=== PATIENT | female | born 1975 | race African-American/Black ===

== ENCOUNTER 2023-11-30 07:37 | Emergency (ER) | payer SELFPAY ==
[2023-11-30 07:41] VITALS: BP 127/75
--- NOTE | 2023-11-30 08:40 | ED.GENMED ---
History of Present Illness
General
Chief Complaint: Numbness
Source: patient
Exam Limitations: none
Time Seen by Provider: 11/30/23 08:20
Nursing documentation reviewed up to this point in time: agreed with
Travel History
Have you had any contact with someone who has COVID-19?: No
Do you have any symptoms of coronavirus? Fever > 100 degrees, chills, cough, shortness of breath, sore throat, loss of taste or smell, muscle aches, or headache?: No
History of Present Illness
History of Present Illness:
48-year-old female presents emergency department complaining of numbness and tingling in her left hand for months. She takes aspirin it helps. This has been ongoing for several months. She has a history of carpal tunnel surgery.
Past History
Past History
ED Past Medical History: Seizures
ED Past Surgical History: , Orthopedic (Left hand carpal tunnel) and Other (Hernia repair)
Social History
Tobacco: Non-smoker
Alcohol: None
Drug: None
Living: with family
Review of Systems
Review of Systems
Allergies reviewed?: Yes
All Other Systems: Not applicable
Constitutional: Reports no symptoms
EENT: Reports no symptoms
Respiratory: Reports no symptoms
Cardiac: Reports no symptoms
ABD/GI: Reports no symptoms
: Reports no symptoms
Musculoskeletal: Reports muscle pain
Skin: Reports no symptoms
Neurological: Reports numbness
Endocrine: Reports no symptoms
Hematologic/Lymphatic: Reports no symptoms
Psychiatric: Reports no symptoms
Phy Exam
Physical Exam
Physical Exam:
Physical Exam
General: no apparent distress, not acutely ill
Neck: supple. no meningeal signs.
Heart: equal radial pulses.
HEENT: Pupils equal round reactive to light, EOMI
Lungs: no acute respiratory distress.
Abdomen: nondistended
Neuro: alert and oriented. no focal neurological deficits
Skin: no rash
Psychiatric: well kept. interactive and cooperative
Extremities: no edema. good distal pulses
Course
Orders/Labs/Results
Orders:
Orders
11/30/23 08:38
US Periph Venous UPPER Ext LT Urgent
Comment:
Reason For Exam: left hand swelling, numbness
Vital Signs
Initial and Last Documented VS:
Initial Vital Signs
Temp Pulse Resp BP Pulse Ox
98.3 F 62 18 127/75 100
11/30/23 07:41 11/30/23 07:41 11/30/23 07:41 11/30/23 07:41 11/30/23 07:41
Last Documented Vital Signs
Temp Pulse Resp BP Pulse Ox
98.3 F 62 18 127/75 100
11/30/23 07:41 11/30/23 07:41 11/30/23 07:41 11/30/23 07:41 11/30/23 07:41
MDM/Problems Addressed
Differential Diagnosis Includes:
dvt, peripheral neuropathy
MDM/Problems Addressed:
48 yo female with peripheral neuropathy left hand. Do not suspect CVA or DVT. Possibly related to patient's carpal tunnel history. Will treat with gabapentin, follow-up with orthopedics.
*Radiology
Radiology exam reviewed: radiology read reviewed (US LUE no dvt)
*Pulse Oximetry
Patient hypoxic: no
*EKG
Interpreted by ED Provider?: NA
*Uranium Processing Supervisor Interpretation
Rate: Uranium Processing Supervisor- N/A
*Critical Care Note
Total Time (30-74mins, 75-104mins- exclusive of procedures): Not Applicable
Patient Management
Social determinants of health affecting care: Living situation
Escalation/DeEscalation of care consider admission/obs:
admit not indicated
ED Attending Note
-
Portions of this chart may have been created with voice recognition software.� Occasional wrong word or��sound alike� substitutions may have occurred due to the inherent limitations of voice recognition software.
Discharge Plan
Departure
Patient Disposition: Home (Routine Discharge)
Date of Disposition: 11/30/23
Time of Disposition: 11:13
Patient with high blood pressure during this ER visit?: Yes
Condition: Good
Discharge Problem:
Peripheral neuropathy
Instructions: Peripheral Neuropathy (DC), BLOOD PRESSURE
Prescriptions:
New
gabapentin 300 mg capsule
300 mg PO HS PRN (Reason: pain, numbness) Qty: 30 0RF
No Action
ondansetron [Zofran ODT] 8 MG tablet,disintegrating
8 mg PO TID PRN (Reason: nausea/vomiting) Qty: 30 0RF
oxycodone 5 MG tablet
5 mg PO Q4HPRN PRN (Reason: pain) Qty: 20 0RF
Referrals:
Brandon Vanegas MD [Active] - Call in 1-3 days for appt
UNKNOWN - PT DOES,NOT KNOW [Family Provider] -
Interventions
Interventions:
*Risk Screen - Suicide Last Done: 11/30/23 07:41
*Neglect/Abuse Screening Last Done: 11/30/23 07:41
ED- Neurological Assessment Last Done: 11/30/23 11:03
Discharge Date and Time
Print Language: [id number]
[2023-11-30 11:30] VITALS: BP 117/75
== END 2023-11-30 11:37 | disposition home or self-care (01) ==
LOC: EMR 07:37
PROVIDERS: EMERGENCY PHYSICIAN Emergency Medicine
DX: G62.9 Polyneuropathy, unspecified (principal); G40.909 Epilepsy, unspecified, not intractable, without status epilepticus; Z79.82 Long term (current) use of aspirin
CPT/HCPCS: 99284; 93971